=== PATIENT | male | born 1955 | race Caucasian/White ===

== ENCOUNTER 2019-02-04 19:52 | Emergency (ER) | payer MEDICARE, MEDICAID ==
[~2019-02-04] VITALS: Ht 177.8 cm; Wt 95.5 kg
[2019-02-04] MEDS ORDERED: [UNRECOGNIZED DRUG - OTHER] PO (20:40)
[2019-02-04 23:10] VITALS: BP 138/78
== END 2019-02-04 23:10 | disposition home or self-care (01) ==
LOC: EMS 19:54
DX: R76.11 Nonspecific reaction to tuberculin skin test without active tuberculosis (principal); I10 Essential (primary) hypertension; F12.90 Cannabis use, unspecified, uncomplicated; F15.90 Other stimulant use, unspecified, uncomplicated; F17.290 Nicotine dependence, other tobacco product, uncomplicated

== ENCOUNTER 2019-02-16 15:10 | Emergency (ER) | payer MEDICARE, MEDICAID ==
[~2019-02-16] VITALS: Ht 177.8 cm; Wt 90.5 kg
[~2019-02-16 15:10] MED LIST: [UNRECOGNIZED DRUG - OTHER] PO
[2019-02-16] MEDS ORDERED: FAMOTIDINE 20 MG TABLET PO ONE (16:15)
[2019-02-16] MEDS ORDERED: DiphenhydrAMINE HCL 25 MG CAPSULE PO ONE (16:15)
[2019-02-16 17:22] VITALS: BP 138/76
== END 2019-02-16 17:23 | disposition home or self-care (01) ==
LOC: EMS 15:12
DX: R09.81 Nasal congestion (principal); R06.7 Sneezing; I10 Essential (primary) hypertension; F17.210 Nicotine dependence, cigarettes, uncomplicated; F12.90 Cannabis use, unspecified, uncomplicated; F19.90 Other psychoactive substance use, unspecified, uncomplicated

== ENCOUNTER 2019-04-07 16:54 | Emergency (ER) | payer MEDICARE, MEDICAID ==
[~2019-04-07] VITALS: Ht 177.8 cm; Wt 106.8 kg
[2019-04-07] MEDS ORDERED: FLUORESCEIN SODIUM 1 MG STRIP ONE (22:47)
[2019-04-07] MEDS ORDERED: KETOROLAC TROMETHAMINE 60 MG/2 ML VIAL IM ONE (23:15)
[2019-04-08 00:40] VITALS: BP 124/71
== END 2019-04-08 01:36 | disposition home or self-care (01) ==
LOC: EMS 16:56
DX: H57.12 Ocular pain, left eye (principal); I10 Essential (primary) hypertension; F12.90 Cannabis use, unspecified, uncomplicated; F19.90 Other psychoactive substance use, unspecified, uncomplicated; F17.210 Nicotine dependence, cigarettes, uncomplicated
CPT/HCPCS: 70450; 96372; 99284; J1885

== ENCOUNTER 2019-04-09 11:54 | Emergency (ER) | payer MEDICARE, MEDICAID ==
[~2019-04-09] VITALS: Ht 177.8 cm; Wt 100.5 kg
[2019-04-09] MEDS ORDERED: LIDOCAINE 5% TRANSDERMAL PATCH TD ONE (14:30)
[2019-04-09 14:56] VITALS: BP 119/82
== END 2019-04-09 15:12 | disposition home or self-care (01) ==
LOC: EMS 11:56
DX: G89.29 Other chronic pain (principal); M54.5 Low back pain; I10 Essential (primary) hypertension; F17.210 Nicotine dependence, cigarettes, uncomplicated; F12.90 Cannabis use, unspecified, uncomplicated; F15.90 Other stimulant use, unspecified, uncomplicated; Z98.890 Other specified postprocedural states
CPT/HCPCS: 99406